=== PATIENT | female | born 1990 | race Caucasian/White ===

== ENCOUNTER 2016-07-16 14:35 | Emergency (ER) | payer OTHER ==
[~2016-07-16] VITALS: Ht 160 cm; Wt 62.2 kg
[2016-07-16 14:54] VITALS: BP 141/82; PULSE 115; RESP 13; O2SAT 99
--- NOTE | 2016-07-16 15:08 | ED.REPORT ---
HPI-General Illness Date of Service July 16, 2016 ED Provider: Levi Caraballo MD Pt is a 25 y/o female w/ a hx of anxiety and panic attacks presenting to the ED via EMS c/o panic attack onset prior to arrival. The patient was driving down a highway and her eyes began to become blurry, progressing into dizziness, which progressed into rapid heart palpitations and chest pain. She pulled ovedr to the side of the road and called EMS. Upon arrival EMS recorded a heart rate of 140 bpm with other vital signs within normal limits. She experiences this infrequently but this episode was the worst she has ever experienced. She c/o associated mild lower left CP. Pt denies SOB. She has been worked up for these episodes previously including Holter monitor and chest x-ray. She reports a trigger today may have been some mild URI-like symptoms for which she took Sudafed this morning for. She has been attempting to decrease stress in her life but reports she has been going through depression for the past year associated with fears of dieing, and struggles in her marriage. Her fears of dieing keeps her up at night. She has never spoken with a psychiatrist or counselor about this fear. She does report losing multiple family members within a couple months 2-3 years ago which may be the cause of this fear. She denies any history of PE, DVT, recent surgeries or periods of immobilization. She denies any drug use, she had 2 beers last night. Nursing Notes Stated Complaint: ANXIETY Chief Complaint: General Complaint Nursing Notes Reviewed: Yes Allergies: Coded Allergies: No Known Allergies (Unverified , 07/16/16) General Time Seen by MD: 15:05 Chief Complaint Other (anxiety) Hx Obtained From: Patient, EMS Arrived By: Ambulance Sudden in Onset?: Yes Onset Occurred: Just prior to arrival Symptom Duration: Since onset Location: : Chest Quality: Painful Severity: Current: No pain currently Severity: Maximum: Mild Recent Healthcare: Previous diagnosis, Prior workup Similar Sx Previous: Yes Past Medical History Past Medical History Anxiety Past Surgical History None reported Smoking History Never Smoker Social History Alcohol Use: "Social" Drug Use: Denies drug use Ambulatory Status Independent Review of Systems Full Review of Systems Constitutional: Denies: Chills, Fever Ears / Nose / Throat: Reports: Nasal congestion Respiratory: Denies: Shortness of breath Cardiovascular: Reports: Chest pain, Palpitations Psychiatric: Reports: Anxiety Complete sys rev & neg: except as marked. Physical Exam Vital Signs Vital Signs Date Time Temp Pulse Resp B/P Pulse Ox O2 Delivery O2 Flow Rate FiO2 07/16/16 15:44 36.8 94 18 131/61 100 Room Air 07/16/16 14:54 36.8 115 13 141/82 99 Room Air Initial VS: Reviewed, Vital signs abnormal Head / Eyes: Atraumatic, Normocephalic, PERRL ENT: Mucous membranes moist, Conjunctiva normal, No scleral icterus Neck: Supple, Full range of motion Respiratory: Breath sounds normal, Clear to auscultation, No respiratory distress Cardiovascular: Regular rate & rhythm, Heart sounds normal, Intact distal pulses Abdomen / GI: Soft, Non-tender, No distention Extremities: Vascular intact, Neuro intact, No swelling, No tenderness Skin: Warm, Dry, No cyanosis Neurologic: Alert, Oriented, Nonfocal General/Constitutional: Awake, Alert, No acute distress, Well appearing, Cooperative, Not toxic appearing Behavior: Positive: Anxious Psychiatric: No hallucinations, Cognitive function NL, Judgment/insight NL, Thought content NL Abnormal Mood/Affect: Positive: Anxious Interpretation & Diagnostics Lab Results Interpretation Test 07/16/16 15:53 Hold Urine Received (Received) ECG Interpretation Time: 16:01 Interpreted by: ED physician Normal ECG Interpretation: Normal ECG w/ rate of... (81), Normal rate, Normal sinus rhythm, No acute ischemic changes, Normal QRS, Normal axis, Normal intervals, Adequate tracing X-Ray Chest Interpretation Chest Xray Interpretation: IMPRESSION: Negative chest. No acute cardiopulmonary process is evident. Dictated by: Pancho Barton M.D. on 07/16/2016 at 15:06 Approved by: Pancho Barton M.D. on 07/16/2016 at 15:06 View: Portable, 1 view Interpretation / Wet Read by: Interpret - Radiologist Re-Eval/Medical Decision Med Decision/Clinical Course In summary, the patient is a generally healthy 25-year-old female who presents to the emergency department after an episode of panic/anxiety, sensation of impending doom/, racing heart that occurred earlier today while driving her car. She reports multiple stressors recently including the of several family members and states that she is over, the fear of . She has had multiple similar episodes to this in the past and has been extensively worked up with Holter monitor, previous chest x-rays and EKGs all of which have been unremarkable. Of note the patient currently has an upper respiratory infection and took pseudoephedrine this morning to treat her symptoms. I suspect that this may have played into her presentation today due to Sudafed sympathomimetic properties. The patient admits a very high level of anxiety though she has never seen a psychologist or psychiatrist. I had a long discussion with the patient about options for managing her symptoms including medications and cognitive behavioral therapy. The patient was seen and evaluated by her emergency department psych social worker and provided with resources so that she may establish with a psychiatrist/psychologist in the community. EKG was obtained and demonstrated normal sinus rhythm without any conduction abnormalities or ischemic changes. Of note the patient was very tachycardic in the 140s upon arrival though this completely resolved in the emergency room and her heart rate was in the 80s to 90s during my evaluation at the bedside. CXR: Obtained, reviewed and interpreted by myself shows no evidence of infiltrates, effusions or pneumothorax. Cardiac and mediastinal silhouette normal. No bony or soft tissue abnormalities. At this time, the patient is calm, without suicidal ideation I see no evidence of acute medical etiology of her presentation today. Pt feels comfortable with discharge and has been provided with resources. Prior to discharge follow-up and return precautions were reviewed in detail with the patient who verbalized understanding and agreement with the plan. The patient was discharged in stable condition. Urine : negative. Counseled Regarding: Diagnosis, Need for follow-up, When/why to return to ED Discharge & Departure Primary Impression: Panic attack Additional Impressions: Tachycardia Acute situational disturbance Disposition: Home Discharge Condition All VS Reviewed: Yes Condition: Stable Patient Instructions: Panic Attack (ED) Additional Instructions: Thank you for seeking care at the emergency room. It is difficult for us to make definitive diagnoses in the ED but we believe that you are experiencing a panic attack. Our primary goal today in the ED was to evaluate you for any life-threatening conditions. Your evaluation was reassuring. Your EKG and chest x-ray were normal. Please use the resources given to you by our psych social worker today. You should return to the ED immediately if you develop shortness of breath, persistent or severe chest pain, lightheadedness, weakness or any other concerning signs or symptoms. Thank you for letting us partake in your care today. Scribe Attestation Portions of this note were transcribed by David Paul. I, Dr. Caraballo personally performed the history, physical exam and medical decision-making; I reviewed and confirmed the accuracy of the information in the transcribed note. Signed by Holli Miller, 07/16/16 - 1545 Levi Caraballo MD July 16, 2016 15:08 DAVID PAUL July 16, 2016 15:14
[2016-07-16 15:44] VITALS: BP 131/61; PULSE 94; RESP 18; O2SAT 100
--- NOTE | 2016-07-16 16:08 | DRSVH ---
PROCEDURE: X-RAY CHEST, TWO VIEWS ([id number]) INDICATIONS: SHORTNESS OF BREATH TECHNIQUE: 2 views of the chest were acquired. COMPARISON: None. FINDINGS: Surgical changes and devices: None. Lungs and pleura: No pleural effusions or pneumothorax. Lungs are clear. Mediastinum: Mediastinal contours are normal. Heart size is normal. Bones and chest wall: No suspicious bony abnormalities. Soft tissues appear unremarkable. IMPRESSION: Negative chest. No acute cardiopulmonary process is evident. Dictated by: Pancho Barton M.D. on 07/16/2016 at 15:06 Approved by: Pancho Barton M.D. on 07/16/2016 at 15:06
[2016-07-16 17:39] VITALS: BP 117/80; PULSE 87; RESP 18; O2SAT 99
== END 2016-07-16 17:39 | disposition home or self-care (01) ==
LOC: EDUNIT# 14:35 → SED 14:35 → EDBD 14:35 → SED 17:39
DX: F41.0 Panic disorder [episodic paroxysmal anxiety] (principal); F43.0 Acute stress reaction; R00.0 Tachycardia, unspecified; R07.9 Chest pain, unspecified; R42 Dizziness and giddiness; F32.9 Major depressive disorder, single episode, unspecified